=== PATIENT | female | born 1935 | race Asian ===

== ENCOUNTER 2018-03-21 09:18 | Emergency (ER) | payer MEDICARE, OTHER ==
[~2018-03-21] VITALS: Ht 149.9 cm; Wt 54.5 kg
[~2018-03-21 09:18] MED LIST: ACET-66 PO; AMLO-511 PO; APIX5TAB PO; ATEN25TA PO; DOCU250C77 PO; FURO20 PO; LISI-622 PO; MIRT15TA6 PO; POTA10TA17 PO; SULF1TAB42 PO; TRAM50TA4 PO
[2018-03-21] MEDS ORDERED: METO25 PO (09:28)
[2018-03-21] MEDS ORDERED: LISI-662 PO (09:28)
[2018-03-21] MEDS ORDERED: IBUPROFEN 400 MG TABLET PO ONE (11:45)
[2018-03-21] MEDS ORDERED: TraMADol HCL 50 MG TABLET PO ONE (11:45)
[2018-03-21 12:43] VITALS: BP 148/64
== END 2018-03-21 13:10 | disposition home or self-care (01) ==
LOC: EMS 09:19
DX: S13.4XXA Sprain of ligaments of cervical spine, initial encounter (principal); Z79.899 Other long term (current) drug therapy; X58.XXXA Exposure to other specified factors, initial encounter; Y93.89 Activity, other specified; Y92.89 Other specified places as the place of occurrence of the external cause; Y99.8 Other external cause status
CPT/HCPCS: 72040